=== PATIENT | female | born 1945 | race Caucasian/White ===

== ENCOUNTER 2019-03-05 08:21 | Outpatient (CLI) | payer MEDICARE ==
--- NOTE | 2019-03-05 15:45 | NM ---
NUCLEAR MEDICINE GASTRIC EMPTYING SCAN WITH MEAL: Date: 03/05/19 HISTORY: Reflux for years. Trouble with liquids. TECHNIQUE: Patient administered 2.1 mCi of technetium-99m sulfur colloid orally in a standard egg mixture. FINDINGS: 0 minutes: 0% 31 minutes: 26% 61 minutes: 51% 121 minutes: 84% 179 minutes: 97% 239 minutes: 99% T-1/2 time: 60 minutes IMPRESSION: 60 minutes T-1/2 time. POS: OFF
== END 2019-03-05 08:22 | disposition home or self-care (01) ==
LOC: NM 08:21
PROVIDERS: ATTEND Internal Medicine
DX: K21.9 Gastro-esophageal reflux disease without esophagitis (principal)
CPT/HCPCS: 78264; A9541